=== PATIENT | female | born 1975 ===

== ENCOUNTER 2023-11-03 09:44 | Emergency (ER) | payer BC ==
[2023-11-03] MEDS: Ondansetron 4 MG/2 ML SDV IVPUSH ONE (10:24)
[2023-11-03] MEDS: Metoclopramide 10 MG/2 ML SDV IVPUSH ONE (10:25)
[2023-11-03] MEDS: Ketorolac 30 MG/ML SDV IVPUSH ONE (10:25)
[2023-11-03] MEDS: diphenhydrAMINE 50 MG/ML SDV IVPUSH ONE (10:25)
[2023-11-03] MEDS: Sodium Chloride 0.9% 1,000 ML IV SCH (10:44)
[2023-11-03 10:53] LABS: BASOPHILS ABSOLUTE AUTO 0.04 K/uL (0.00-0.20); BASOPHILS PERCENT AUTO 0.5 % (0.0-1.0); EOSINOPHILS PERCENT AUTO 1.3 % (0.0-6.0); HEMATOCRIT 43.6 % (37.0-47.0); HEMOGLOBIN 14.9 g/dL (12.0-16.0); IMMATURE GRAN ABSOLUTE AUTO 0.01 K/uL (0.00-0.05); IMMATURE GRAN PERCENT AUTO 0.1 % (0.0-0.4); LYMPHOCYTES PERCENT AUTO 15.8 % (24.0-44.0); MEAN CORPUSCULAR HGB CONC 34.2 g/dL (32.0-36.0); MEAN CORPUSCULAR VOLUME 90.8 fL (83.0-99.0); MEAN PLATELET VOLUME 10.8 fL (9.4-12.3); MONOCYTES ABSOLUTE AUTO 0.25 K/uL (0.00-0.80); MONOCYTES PERCENT AUTO 3.3 % (0.0-8.0); NEUTROPHILS ABSOLUTE AUTO 5.98 K/uL (1.80-7.70); PLATELET COUNT,PLT 199 K/uL (150-400); WHITE BLOOD CELL COUNT,WBC 7.58 K/uL (3.9-11.3)
[2023-11-03 11:23] LABS: A/G RATIO 1.2 (0.9-1.6); ALBUMIN 3.9 g/dL (3.4-5.0); BILIRUBIN TOTAL 0.4 mg/dL (0.2-1.0); CALCIUM 8.6 mg/dL (8.5-10.1); CARBON DIOXIDE,CO2 25.3 mmol/L (21.0-32.0); CREATININE 0.9 mg/dL (0.6-1.0); EST CRCL DRUG DOSING (CG) 79.63 mL/min; POTASSIUM,K 4.2 mmol/L (3.5-5.1); PROTEIN TOTAL,TP 7.1 g/dL (6.4-8.2)
[2023-11-03 11:50] VITALS: BP 131/79; PULSE 66
== END 2023-11-03 12:01 | disposition home or self-care (01) ==
LOC: MW.ED 09:44
DX: G97.1 Other reaction to spinal and lumbar puncture (principal); Z79.899 Other long term (current) drug therapy; Z88.5 Allergy status to narcotic agent; Z75.8 Other problems related to medical facilities and other health care
CPT/HCPCS: 80053; 85025; 96361; 96374; 96375; 99284; J1200; J1885; J2405; J2765; J7030